=== PATIENT | male | born 1985 | race Caucasian/White ===

== ENCOUNTER → 2024-12-16 13:31 | Outpatient (BNVA) | payer OTHER, SELFPAY | PROVIDERS: Visit Provider Nurse Practitioner Family | DX: D22.39 Melanocytic nevi of other parts of face (principal); D17.1 Benign lipomatous neoplasm of skin and subcutaneous tissue of trunk; D48.5 Neoplasm of uncertain behavior of skin; L91.8 Other hypertrophic disorders of the skin; R20.9 Unspecified disturbances of skin sensation; R20.8 Other disturbances of skin sensation; R23.8 Other skin changes; L53.8 Other specified erythematous conditions | CPT/HCPCS: 11104; 17110; 99203 ==